=== PATIENT | female | born 1995 | race Caucasian/White ===

== ENCOUNTER 2017-07-14 22:10 | Emergency (ER) | payer BC, SELFPAY ==
[2017-07-14 22:13] VITALS: BP 149/92; PULSE 73; RESP 18; TEMP 36.6; O2SAT 100; BMI 26.0
--- NOTE | 2017-07-14 22:45 | CT_ITS ---
STUDY: CT ABDOMEN AND PELVIS WITH CONTRAST REASON FOR EXAM: Female, 22 years old. Abdominal pain RADIATION DOSAGE (If Supplied By Facility): CTDIvol = ( 10.75 ) mGy, DLP = ( 674.57 ) mGycm TECHNIQUE: Transaxial images were obtained from the dome of the diaphragm to the symphysis pubis without oral contrast. 100 ml of Isovue 300 contrast was administered. Sagittal and coronal images were reconstructed. Individualized dose optimization techniques were used for this CT. COMPARISON: None. FINDINGS: The visualized lung bases are unremarkable. The visualized portions of the heart are within normal limits. Normal liver. Normal gallbladder and extrahepatic biliary system. Normal spleen. Normal pancreas. Normal bilateral adrenal glands. Normal right kidney. Normal left kidney. Normal visualized stomach. Normal small intestine. Normal colon. The appendix is not identified. There is lymphoid hyperplasia in the mesentery which is nonspecific. Normal abdominal aorta. Normal inferior vena cava. Normal retroperitoneum. Normal urinary bladder. Uterus and ovaries are unremarkable. There is NO ascites, free air, abscess or adenopathy. There is NO hematoma or hemoperitoneum. Normal abdominal wall. Normal osseous structures. CT/Abdomen/Pelvis W IV Cont ONLY IMPRESSION: There is NO acute intra-abdominal abnormality. There is NO evidence of traumatic bony or soft tissue injury. Electronically Signed: Jareth Lazaro MD at 1:49 EDT , Service support ,
--- NOTE | 2017-07-14 22:47 | ED.VISSUMM ---
- ER Visit Summary Date of Service: 07/14/17 Chief Complaint: Abdominal injury History of Present Illness: The patient is a 22 F here with mother for abdominal injury occurring around 7 PM 3 hours prior to arrival. Patient riding her horse when she got bucked up, falling directly on the saddle knob with her left lower abdomen. She is nauseated. There has been no vomiting. No anticoagulation medicines. Patient takes oral contraceptives, last menstrual period a week ago. Physical Examination: General: Alert and oriented ?3, no acute distress HEENT: Normocephalic, atraumatic. Moist mucosa membranes Neck: supple, nontender. Cardiovascular: Regular rate and rhythm, no murmurs Respiratory: Normal breath sounds, symmetric, no distress Abdomen: Soft, tender palpation left lower quadrant/pelvis with erythema. There is no ecchymosis. Reports pain going to the left lateral abdomen during palpation. Skin intact. Nondistended Extremities: Nontender, no edema, pulses intact ?4 Neuro: no focal neurological deficits. Test Results: Hemoglobin 12. Creatinine 1.03. HCG negative. CT abdomen pelvis IV contrast no acute process. Emergency Department Course and Treatment: Patient direct injury falling down onto the saddle. Her full body weight. Complain pain that is radiating. Discussed with patient and mother possible concern for intra-abdominal process due to her injury. Discussed image studies to rule out for which they agree. Results negative. She given fentanyl Zofran. Symptoms controlled. Should continue NSAIDs at home. Ice as needed. She will monitor symptoms. Patient will follow-up as an outpatient. All questions were answered. Treatment Plan: [] Disposition: Discharge Impression: Abdominal contusion This note was generated with [employer] dictation software. It may contain incorrect words, spelling, and punctuation that were not noted in review of the chart prior to signing ED Disposition - Plan for ED Patient: Disposition: Home or Assisted Living Chief Complaint: Abd Pain Diagnosis: Abdominal wall contusion Instructions: ED Abdominal Injury Blunt Benign Referrals: Alyse Phillip MD [Primary Care Provider] - 3-5 Days if not improving
[2017-07-14] MEDS: fentaNYL 100 MCG/2 ML Ampul 25 MCG IV (23:08)
[2017-07-14] MEDS: 0.9% Normal Saline 1,000 ML 150 ML IV (23:08)
[2017-07-14] MEDS: Ondansetron 4 MG/2 ML Vial IV (23:08)
[2017-07-14 23:16] LABS: Absolute Lymphocyte Count 2.13 X10^3/ul (0.83-4.51); Basophil# 0.01 X10^3/uL; Basophil% 0.1 % (0-1); Eosinophil# 0.07 X10^3/uL; Eosinophils% 0.9 % (0-5); Hematocrit 36.3 % (37-47); Lymphocyte # 2.13 X10^3/ul (4.0); Lymphocyte % 28.3 % (19-41); Mean Corp Hgb Conc 33.1 g/gl (32-36); Mean Corpuscular Volume 90.8 fL (81-99); Mean Platelet Vol. 11.2 fl (6.2-12.0); Monocyte# 0.32 X10^3/uL; Monocyte% 4.3 % (0-10); Neutrophil # 4.98 X10^3/uL (2.7-7.7); Neutrophil % 66.3 % (47-70); Platelet Count 183 K/mm3 (150-450); RBC Distribution Width CV 13.1 % (11.6-14.6); RBC Distribution Width SD 43.4 fl (35.1-43.9); White Blood Count 7.5 K/mm3 (4.4-11.0)
[2017-07-14 23:17] LABS: POSITIVE COUNT NO; POSITIVE DIFFERENTIAL NO; POSITIVE MORPHOLOGY NO
[2017-07-14 23:33] LABS: Anion Gap 7 (5-15); BUN 21 mg/dL (7-18); BUN/Creat Ratio 20.4 RATIO (10-20); Calcium,Total 8.3 mg/dL (8.5-10.1); Chloride 106 mmol/L (98-107); Creatinine, Serum 1.03 mg/dL (0.55-1.02); EST Glomerular Filtration Rate 71 mL/min (>60); Est Glom Filt Rate - Afr Amer 86 mL/min (>60); Estimated Creatinine Clearance 70.87 ml/min; Glucose 81 mg/dL (74-106); International Normalized Ratio 0.9; Potassium 4.2 mmol/L (3.5-5.1); Prothrombin Time (Protime)PT. 12.6 SECONDS (11.7-14.9); Sodium Level 138 mmol/L (136-145)
[2017-07-14 23:34] LABS: Partial Thromboplast Time 28.5 Seconds (24.1-36.2)
[2017-07-14 23:59] LABS: Pregnancy, Serum, hCG Quali. NEGATIVE Negative (0-9 Nonpreg)
[2017-07-15 01:04] VITALS: RESP 14
[2017-07-15 02:28] VITALS: BP 124/88; PULSE 78; RESP 14; O2SAT 98
--- NOTE | 2017-07-15 02:29 | ED.RN ---
PT GIVEN WRITTEN AND VERBAL DISCHARGE INSTRUCTIONS. PT VERBALIZES UNDERSTANDING AND DENIES ANY FURTHER QUESTIONS. PT IV D/C AND COVERED WITH 2X2 GAUZE DRESSING AND PAPER TAPE. MINIMAL BLEEDING NOTED. PT DRESSES SELF AND AMBULATES OUT OF DEPT WITHOUT DIFFICULTY. PT TO FOLLOW UP WITH PCP.
== END 2017-07-15 02:30 | disposition home or self-care (01) ==
PROVIDERS: Emergency Provider Emergency Medicine; Family Provider Family Medicine; PCP Family Medicine
DX: S30.1XXA Contusion of abdominal wall, initial encounter (principal); R11.0 Nausea; W22.8XXA Striking against or struck by other objects, initial encounter; Y93.52 Activity, horseback riding; Y92.9 Unspecified place or not applicable; Z79.3 Long term (current) use of hormonal contraceptives
CPT/HCPCS: 74177; 80048; 84703; 85025; 85610; 85730; 96361; 96374; 96375; 99284; J7030; Q9967; A4216; J2405